=== PATIENT | male | born 1990 | race Caucasian/White ===

== ENCOUNTER 2018-09-16 00:38 | Inpatient (IN) | payer OTHER ==
[2018-09-16] VITALS (13 sets, daily range): BP systolic 83–139; BP diastolic 49–100; Ht 175.3 cm; Wt 98.6 kg
[~2018-09-16] VITALS: Ht 175.3 cm; Wt 98.6 kg
[~2018-09-16 00:38] MED LIST: AMBIENPAK10 M1 PO; AMBIENPAK10 MG PO; IMIPRAMINE50 MG PO; INVEGA1.5 MG PO; XAN1 PO
[2018-09-16 01:13] LABS: BASOPHIL % 0.6 % (0-2); PLATELET COUNT 240 x10^3mcL (130-400); RED CELL DISTRIBUTION WIDTH 13.1 % (11.5-14.5)
[2018-09-16 01:27] LABS: ALBUMIN 3.4 g/dL (3.4-5.0); ALKALINE PHOSPHATASE 71 U/L (46-116); ALT/SGPT 31 U/L (16-63); AST/SGOT 23 U/L (15-37); BILIRUBIN TOTAL 0.23 mg/dL (0.20-1.00); CALCIUM 7.2 mg/dL (8.5-10.1); CARBON DIOXIDE 26.7 mmol/L (21-32); CHLORIDE SERUM 108 mmol/L (98-107); CREATININE SERUM 1.1 mg/dL (0.7-1.3); GFR1 > 60 mL/min; GLUCOSE SERUM 116 mg/dL (74-106); SODIUM SERUM 147 mmol/L (136-145); TOTAL PROTEIN, SERUM 6.3 g/dL (6.4-8.2)
[2018-09-16 01:39] LABS: microscopic required? NO
[2018-09-16 02:05] LABS: POTASSIUM SERUM 2.9 mmol/L (3.5-5.1)
[2018-09-16 02:08] LABS: UA SPECIFIC GRAVITY <=1.005 (1.005-1.035); urine erythrocyte NEGATIVE (NEGATIVE)
[2018-09-16 04:04] LABS: AMPHETAMINE QUAL UR NONE DETECTED (See below)
[2018-09-16 05:42] LABS: BASOPHIL % 0.3 % (0-2); PLATELET COUNT 251 x10^3mcL (130-400); RED CELL DISTRIBUTION WIDTH 13.2 % (11.5-14.5)
[2018-09-16 05:53] LABS: ALBUMIN 3.5 g/dL (3.4-5.0); ALKALINE PHOSPHATASE 75 U/L (46-116); ALT/SGPT 44 U/L (16-63); AST/SGOT 29 U/L (15-37); BILIRUBIN TOTAL 0.29 mg/dL (0.20-1.00); CALCIUM 7.5 mg/dL (8.5-10.1); CARBON DIOXIDE 28.1 mmol/L (21-32); CHLORIDE SERUM 110 mmol/L (98-107); GFR1 > 60 mL/min; GLUCOSE SERUM 120 mg/dL (74-106); SODIUM SERUM 148 mmol/L (136-145); TOTAL PROTEIN, SERUM 6.6 g/dL (6.4-8.2)
[2018-09-17] VITALS (7 sets, daily range): BP systolic 117–132; BP diastolic 60–77
[2018-09-17 05:26] LABS: BASOPHIL % 0.4 % (0-2); PLATELET COUNT 233 x10^3mcL (130-400); RED CELL DISTRIBUTION WIDTH 13.1 % (11.5-14.5)
[2018-09-17 05:51] LABS: ALKALINE PHOSPHATASE 73 U/L (46-116); ALT/SGPT 32 U/L (16-63); AST/SGOT 20 U/L (15-37); BILIRUBIN TOTAL 1.14 mg/dL (0.20-1.00); CALCIUM 8.3 mg/dL (8.5-10.1); CARBON DIOXIDE 30.3 mmol/L (21-32); CHLORIDE SERUM 107 mmol/L (98-107); CREATININE SERUM 0.8 mg/dL (0.7-1.3); GFR1 > 60 mL/min; GLUCOSE SERUM 91 mg/dL (74-106); POTASSIUM SERUM 4.3 mmol/L (3.5-5.1); SODIUM SERUM 142 mmol/L (136-145); TOTAL PROTEIN, SERUM 6.5 g/dL (6.4-8.2)
[2018-09-17 05:53] LABS: ALBUMIN 3.2 g/dL (3.4-5.0)
[2018-09-17] MEDS ORDERED: LEVAQUIN500 M1 PO (15:22)
[2018-09-18 05:54] VITALS: BP 111/73
[2018-09-18 09:22] VITALS: BP 120/72
[2018-09-18 12:51] VITALS: BP 119/75
[2018-09-18 18:11] VITALS: BP 125/77
[2018-09-18 20:45] VITALS: BP 144/81
[2018-09-19 06:22] VITALS: BP 124/80
[2018-09-19 09:13] VITALS: BP 120/88
[2018-09-19 13:37] VITALS: BP 129/86
[2018-09-19 18:41] VITALS: BP 135/94
[2018-09-19 20:46] VITALS: BP 129/87
[2018-09-20 06:05] VITALS: BP 123/76
[2018-09-20 09:24] VITALS: BP 108/68
[2018-09-20 14:15] VITALS: BP 133/58
[2018-09-20 14:33] VITALS: BP 119/71
[2018-09-20 16:46] VITALS: BP 134/93
[2018-09-20 19:15] VITALS: BP 138/89
[2018-09-21 05:57] VITALS: BP 140/91
[2018-09-21 11:39] VITALS: BP 102/67
[2018-09-21 16:15] VITALS: BP 155/101
[2018-09-21 19:40] VITALS: BP 138/95
[2018-09-22 05:45] VITALS: BP 133/86
[2018-09-22 09:38] VITALS: BP 133/97
[2018-09-22 17:17] VITALS: BP 135/90
[2018-09-22 19:12] VITALS: BP 108/60
[2018-09-22 20:55] VITALS: BP 121/75
[2018-09-23 06:07] VITALS: BP 120/67
[2018-09-23 09:05] VITALS: BP 127/83
[2018-09-23 13:17] VITALS: BP 119/72
[2018-09-23 16:48] VITALS: BP 106/71
== END 2018-09-23 17:54 | DRG 720 ==
LOC: ED 00:38 → DU 03:07 → IC 03:07 → DU 09-17 13:09 → MU 09-23 15:08
PROVIDERS: Emergency Medicine; Internal Medicine; ADMIT Internal Medicine Pulmonary Disease
PROC: 5A1935Z Respiratory Ventilation, Less than 24 Consecutive Hours (ICD-10-PCS; principal; 2018-09-16)
PROC: 0BH17EZ Insertion of Endotracheal Airway into Trachea, Via Natural or Artificial Opening (ICD-10-PCS; 2018-09-16)
DX: A41.9 Sepsis, unspecified organism (principal); J96.00 Acute respiratory failure, unspecified whether with hypoxia or hypercapnia; J69.0 Pneumonitis due to inhalation of food and vomit; G93.41 Metabolic encephalopathy; F32.9 Major depressive disorder, single episode, unspecified; F41.9 Anxiety disorder, unspecified; F10.10 Alcohol abuse, uncomplicated; Y90.9 Presence of alcohol in blood, level not specified; T42.4X2A Poisoning by benzodiazepines, intentional self-harm, initial encounter; Y92.018 Other place in single-family (private) house as the place of occurrence of the external cause
CPT/HCPCS: 82962; A4628; G0480; J0696; J1650; J2060; J2543; J2704; J3480; J3490; J7030; J7042; Q0092

== ENCOUNTER 2020-02-03 06:55 | Emergency (ER) | payer OTHER ==
[~2020-02-03] VITALS: Ht 172.7 cm; Wt 81.6 kg
[~2020-02-03 06:55] MED LIST changes: +LEVAQUIN500 M1 PO
[2020-02-03 06:59] VITALS: Ht 172.7 cm; Wt 81.6 kg
[2020-02-03 10:49] VITALS: BP 159/96
== END 2020-02-03 10:49 | disposition home or self-care (01) ==
LOC: ED 06:55
DX: S62.92XA Unspecified fracture of left hand, initial encounter for closed fracture (principal); S93.602A Unspecified sprain of left foot, initial encounter; S20.212A Contusion of left front wall of thorax, initial encounter; Z88.8 Allergy status to other drugs, medicaments and biological substances; V09.9XXA Pedestrian injured in unspecified transport accident, initial encounter; Y93.89 Activity, other specified; Y92.89 Other specified places as the place of occurrence of the external cause; Y99.8 Other external cause status
CPT/HCPCS: 90715

== ENCOUNTER 2020-04-05 23:59 | Emergency (ER) | payer OTHER ==
[~2020-04-05] VITALS: Ht 172.7 cm; Wt 107.5 kg
[2020-04-06 00:15] VITALS: Ht 172.7 cm; Wt 107.5 kg
[2020-04-06 03:26] VITALS: BP 117/81
== END 2020-04-06 03:26 | disposition home or self-care (01) ==
LOC: ED 23:59
DX: S62.307A Unspecified fracture of fifth metacarpal bone, left hand, initial encounter for closed fracture (principal); S62.305A Unspecified fracture of fourth metacarpal bone, left hand, initial encounter for closed fracture; Z88.8 Allergy status to other drugs, medicaments and biological substances; W01.0XXA Fall on same level from slipping, tripping and stumbling without subsequent striking against object, initial encounter; Y93.89 Activity, other specified; Y92.89 Other specified places as the place of occurrence of the external cause; Y99.8 Other external cause status
CPT/HCPCS: Q0092